=== PATIENT | male | born 1995 | race Caucasian/White ===

== ENCOUNTER 2020-06-22 00:47 | Emergency (ER) | payer SELFPAY ==
--- NOTE | 2020-06-22 00:55 | NUR ---
CALLED 3 TIMES, NO ANSWER, PT LEFT W/O BEING TRIAGED.
== END 2020-06-22 00:56 | disposition left against medical advice (07) ==
LOC: ER 00:55
DX: Z75.3 Unavailability and inaccessibility of health-care facilities (principal)